=== PATIENT | female | born 1995 | race Caucasian/White ===

== ENCOUNTER 2020-11-25 12:08 | Outpatient (CLI) | payer OTHER ==
[~2020-11-25 12:08] MED LIST: COLACE 100MG C100 MG PO; IBUPROFEN600 MG PO; LORTAB 5-325 M1 EACH PO; PRENATABS FA T1 EACH PO
[2020-12-08] MEDS ORDERED: IBUPROFEN800 MG PO (14:11)
[2020-12-08] MEDS ORDERED: DOCUSATE SODIU100 MG PO (14:11)
== END 2020-11-25 19:56 | disposition home or self-care (01) ==
LOC: GENOP 12:08
DX: O47.1 False labor at or after 37 completed weeks of gestation (principal); Z3A.37 37 weeks gestation of pregnancy; O99.891 Other specified diseases and conditions complicating pregnancy; N89.8 Other specified noninflammatory disorders of vagina
CPT/HCPCS: 83518; 96360

== ENCOUNTER 2020-12-08 05:28 | Inpatient (IN) | payer OTHER ==
[2020-12-08 06:29] LABS: HEMOGLOBIN 9.6 gm/dl (12.3-15.3); RED BLOOD COUNT 3.75 M/UL (4.00-5.10); WHITE BLOOD COUNT 11.8 K/UL (4.5-11.0)
[2020-12-08] MEDS ORDERED: DOCUSATE SODIU100 MG PO (14:11)
[2020-12-08] MEDS ORDERED: IBUPROFEN800 MG PO (14:11)
[2020-12-09] MEDS ORDERED: HEMOCYTE324 MG PO (09:47)
== END 2020-12-09 18:44 | disposition home or self-care (01) | DRG 807 ==
LOC: OB 05:28
PROVIDERS: ADMIT Obstetrics & Gynecology
PROC: 10E0XZZ Delivery of Products of Conception, External Approach (ICD-10-PCS; principal; 2020-12-08)
PROC: 10907ZC Drainage of Amniotic Fluid, Therapeutic from Products of Conception, Via Natural or Artificial Opening (ICD-10-PCS; 2020-12-08)
PROC: 3E033VJ Introduction of Other Hormone into Peripheral Vein, Percutaneous Approach (ICD-10-PCS; 2020-12-08)
PROC: 4A1HXCZ Monitoring of Products of Conception, Cardiac Rate, External Approach (ICD-10-PCS; 2020-12-08)
DX: O80 Encounter for full-term uncomplicated delivery (principal); Z37.0 Single live birth; Z3A.39 39 weeks gestation of pregnancy; Z20.822 Contact with and (suspected) exposure to COVID-19; Z90.49 Acquired absence of other specified parts of digestive tract; Z88.0 Allergy status to penicillin; Z82.49 Family history of ischemic heart disease and other diseases of the circulatory system; O90.81 Anemia of the puerperium
CPT/HCPCS: 36415; 51702; 82800; 85014; 85018; 85025; J0595; J2405; J2590; U0002